=== PATIENT | male | born 1960 | race Caucasian/White ===

== ENCOUNTER 2023-01-15 15:10 | Inpatient (IN) | payer BC ==
[2023-01-15 15:51] VITALS: BMI 19.2
[2023-01-15] MEDS ORDERED: IBUPROFEN 400 MG TABLET (FP) PO PRN (16:31)
[2023-01-15] MEDS ORDERED: ACETAMINOPHEN 325 MG TABLET (FP) PO PRN (16:31)
[2023-01-15] MEDS ORDERED: P-EPHED 60MG/TRIPROLIDI 2.5MG TABLET PO PRN (16:31)
[2023-01-15] MEDS ORDERED: BENZOCAINE/MENTHOL (CHLORASEPTIC ) LOZENGE MM PRN (16:31)
[2023-01-15] MEDS ORDERED: LOPERAMIDE HCL 2 MG CAPSULE PO PRN (16:31)
[2023-01-15] MEDS ORDERED: guaiFENesin 600 MG TABLET.ER (FP) PO PRN (16:31)
[2023-01-15] MEDS ORDERED: DICYCLOMINE HCL 10 MG CAPSULE PO PRN (16:31)
[2023-01-15] MEDS ORDERED: hydrOXYzine PAMOATE 25 MG CAPSULE (FP) PO PRN (16:31)
[2023-01-15] MEDS ORDERED: ONDANSETRON *ODT* 4 MG TABLET SL PRN (16:31)
[2023-01-15] MEDS ORDERED: MAGNESIUM HYDROX 2400MG/30ML ORAL SUSPENSION 30 ML CUP PO PRN (16:31)
[2023-01-15] MEDS ORDERED: BENZONATATE 200 MG CAPSULE PO PRN (16:31)
[2023-01-15] MEDS ORDERED: BISMUTH SUBSALICYLATE 524 MG/30 ML PO PRN (16:31)
[2023-01-15] MEDS ORDERED: MAG HYDROX/AL HYDROX/SIMETH 30 ML UNIT-DOSE CUP PO PRN (16:31)
[2023-01-15] MEDS ORDERED: POLYETHYLENE GLYCOL (HEALTHYLAX) 3350 17 GM PACKET PO PRN (16:31)
[2023-01-15] MEDS: diazePAM 5 MG TABLET PO PRN (17:18)
[2023-01-15] MEDS: METHOCARBAMOL 500 MG TABLET PO PRN (17:18)
[2023-01-15] MEDS: IBUPROFEN 600 MG TABLET (FP) PO PRN (17:19)
[2023-01-15] MEDS: NICOTINE POLACRILEX 2 MG GUM BUC PRN (17:54)
[2023-01-15] MEDS: MELATONIN 5 MG TABLETS PO SCH (22:20)
[2023-01-15] MEDS: THIAMINE HCL 100 MG TABLET (FP) PO SCH (22:20)
[2023-01-15] MEDS ORDERED: diazePAM 5 MG TABLET PO SCH (23:00)
[2023-01-16] MEDS: diazePAM 5 MG TABLET PO SCH ×3 (05:55→22:44)
[2023-01-16] MEDS: PRENATAL VITAMINS W/ FOLIC ACID TABLET (FP) PO SCH (10:10)
[2023-01-16] MEDS: NICOTINE 14 MG/24 HOURS TOPICAL PATCH TD SCH (10:11)
[2023-01-16] MEDS: IBUPROFEN 600 MG TABLET (FP) PO PRN (10:13)
[2023-01-16 10:41] LABS: HEMATOCRIT 34.5 % (35.4-49); HEMOGLOBIN 12.1 GM/dL (11.7-16.9); MCH 33.3 pg (25.7-33.7); MEAN CELL VOLUME 95.1 fl (80-96); MEAN PLT VOLUME 8.4 fl (7.5-11.1); PLATELET COUNT 151 10^3/uL (134-434); RBC 3.63 M/mm3 (4.00-5.60); RDW 12.3 % (11.9-15.9); WHITE BLOOD COUNT 4.1 K/mm3 (4.0-10.0)
[2023-01-16 10:44] LABS: POTASSIUM 3.7 mmol/L (3.5-5.1)
[2023-01-16 10:48] LABS: ALBUMIN 3.1 g/dl (3.4-5.0); CALCIUM 8.9 mg/dL (8.5-10.1)
[2023-01-16 10:49] LABS: BLOOD UREA NITROGEN 14.9 mg/dL (7-18)
[2023-01-16 10:51] LABS: CREATININE 0.8 mg/dL (0.55-1.3)
[2023-01-16 10:53] LABS: BILIRUBIN,TOTAL 0.4 mg/dL (0.2-1)
[2023-01-16] MEDS: diazePAM 5 MG TABLET PO PRN (17:42)
[2023-01-16] MEDS: MELATONIN 5 MG TABLETS PO SCH (22:44)
[2023-01-16] MEDS: METHOCARBAMOL 500 MG TABLET PO PRN (22:44)
[2023-01-16] MEDS: THIAMINE HCL 100 MG TABLET (FP) PO SCH (22:44)
[2023-01-16] MEDS: NICOTINE POLACRILEX 2 MG GUM BUC PRN (22:52)
[2023-01-17] MEDS ORDERED: diazePAM 5 MG TABLET PO SCH (06:00)
[2023-01-17 06:04] VITALS: RESP 16
[2023-01-17 09:01] VITALS: BP 124/73; PULSE 64; TEMP 97.3
[2023-01-17] MEDS: NICOTINE 14 MG/24 HOURS TOPICAL PATCH TD SCH (09:53)
[2023-01-17] MEDS: METHOCARBAMOL 500 MG TABLET PO PRN (09:53)
[2023-01-17] MEDS: PRENATAL VITAMINS W/ FOLIC ACID TABLET (FP) PO SCH (09:53)
[2023-01-18] MEDS ORDERED: diazePAM 5 MG TABLET PO ONE (06:00)
== END 2023-01-17 10:03 | disposition home or self-care (01) | DRG 774 ==
LOC: YASAS 15:10 → Y3N 16:48
PROVIDERS: ADMIT Allergy & Immunology; ATTEND Surgery
PROC: HZ2ZZZZ Detoxification Services for Substance Abuse Treatment (ICD-10-PCS; principal; 2023-01-15)
DX: F10.230 Alcohol dependence with withdrawal, uncomplicated (principal); F14.20 Cocaine dependence, uncomplicated; F12.20 Cannabis dependence, uncomplicated; F17.210 Nicotine dependence, cigarettes, uncomplicated; K21.9 Gastro-esophageal reflux disease without esophagitis; Z87.19 Personal history of other diseases of the digestive system
CPT/HCPCS: 36415; 80053; 85027; 86780; 87635